=== PATIENT | male | born 1980 | race Two or more races ===

== ENCOUNTER 2017-07-19 04:27 | Emergency (ER) | payer MEDICAID ==
--- NOTE | 2017-07-19 05:36 | ED PDOC ---
HPI: Psych/Substance Abuse Time Seen by Provider: 07/19/17 04:49 Chief Complaint (Nursing): Psychiatric Evaluation Chief Complaint (Provider): Crisis Eval History Per: Patient History/Exam Limitations: no limitations Onset/Duration Of Symptoms: Days (5) Associated Symptoms: Suicidal Thoughts. denies: Suicidal Plan Additional History Per: Patient, EMS, Law Enforcement Additional Complaint(s): 37 y/o male who is here for psychiatric evaluation. He has a history of schizophrenia and complains that he hears voices and has had SI for the last 5 days. However, now he does not feel any way about himself and denies actively wanting to kill himself at this time. Denies plan. Patient also believes, and saw, that his family was killed in front of him today. Per the police, this did not occur. He reports that he is compliant with his medications. Past Medical History Reviewed: Historical Data, Nursing Documentation, Vital Signs Vital Signs: Last Vital Signs Temp 98.0 F 07/19/17 04:41 Pulse 101 H 07/19/17 04:41 Resp 18 07/19/17 04:41 BP 144/87 07/19/17 04:41 Pulse Ox 98 07/19/17 04:41 - Medical History PMH: Schizophrenia - Surgical History Surgical History: No Surg Hx - Family History Family History: States: Unknown Family Hx - Allergies Allergies/Adverse Reactions: Allergies Allergy/AdvReac Type Severity Reaction Status Date / Time No Known Allergies Allergy Verified 07/19/17 05:32 Review of Systems ROS Statement: Except As Marked, All Systems Reviewed And Found Negative Psych: Positive for: Suicidal ideation Physical Exam - Reviewed Nursing Documentation Reviewed: Yes Vital Signs Reviewed: Yes - Physical Exam Appears: Positive for: Well, No Acute Distress Head Exam: Positive for: ATRAUMATIC, NORMAL INSPECTION Skin: Positive for: Normal Color, Warm, Dry Eye Exam: Positive for: Normal appearance, EOMI Neck: Positive for: Painless ROM Cardiovascular/Chest: Positive for: Regular Rate, Rhythm Respiratory: Positive for: Normal Breath Sounds. Negative for: Respiratory Distress Gastrointestinal/Abdominal: Positive for: Soft. Negative for: Tenderness Back: Positive for: Normal Inspection Extremity: Positive for: Normal ROM Neurologic/Psych: Positive for: Alert, Oriented - Laboratory Results Result Diagrams: 07/19/17 08:30 07/19/17 08:30 - ECG O2 Sat by Pulse Oximetry: 98 Medical Decision Making Medical Decision Making: Impression: Schizophrenia and Suicidal Ideation Plan: - Crisis Evaluation 06:25: restrained for acute psychosis and agitation. Patient also given Haldol and Ativan. Scribe Attestation Documented by Marycarmen Story acting as a scribe for Leland Mccormick MD. Scribe Attestation All medical record entries made by the Scribe were at my direction and personally dictated by me. I have reviewed the chart and agree that the record accurately reflects my personal performance of the history, physical exam, medical decision making, and the department course for this patient. I have also personally directed, reviewed, and agree with the discharge instructions and disposition. Disposition - Clinical Impression Clinical Impression: Bipolar disorder - Patient ED Disposition Is Patient to be Admitted: Transfer of Care Counseled Patient/Family Regarding: Studies Performed, Diagnosis - Disposition Disposition: Transfer of Care Disposition Time: 07:00 Condition: STABLE Patient Signed Over To: Mandeep Saldivar
--- NOTE | 2017-07-19 07:41 | ED PDOC ---
- Laboratory Results Result Diagrams: 07/19/17 08:30 07/19/17 08:30 - ECG O2 Sat by Pulse Oximetry: 98 (RA) Pulse Ox Interpretation: Normal Medical Decision Making Medical Decision Making: Time: 07 Patient is transferred from Dr. Mccormick's care to myself pending crisis evaluation. Time: 1025 Chest X-Ray FINDINGS: LUNGS: Probable azygos lobe with thickening of the fissure. No active pulmonary disease. PLEURA: No significant pleural effusion identified, no pneumothorax apparent. CARDIOVASCULAR: Normal. OSSEOUS STRUCTURES: No significant abnormalities. VISUALIZED UPPER ABDOMEN: Normal. OTHER FINDINGS: None. IMPRESSION: No active disease. Medically stable for psychiatric eval Scribe Attestation: Documented by Brandi Fung, acting as a scribe for Mandeep Bond MD Provider Scribe Attestation: All medical record entries made by the Scribe were at my direction and personally dictated by me. I have reviewed the chart and agree that the record accurately reflects my personal performance of the history, physical exam, medical decision making, and the department course for this patient. I have also personally directed, reviewed, and agree with the discharge instructions and disposition Disposition - Clinical Impression Clinical Impression: Bipolar disorder - POA Present On Arrival: None - Disposition Disposition: Transfer of Care Disposition Time: 15:00 Condition: FAIR Forms: [employer] (Yoruba) Patient Signed Over To: Ester Johnson
[2017-07-19 08:46] LABS: BASO % 0.2 % (0.0-2.0); EOS # 0.2 K/uL (0.0-0.7); HEMOGLOBIN 13.6 g/dL (12.0-18.0); LYMPH # 3.7 K/uL (1.0-4.3); LYMPH % 24.2 % (20.0-40.0); MEAN CELL VOLUME 89.2 fl (80.0-94.0); MEAN CORPUSCULAR HEMOGLOBIN 29.9 pg (27.0-31.0); MEAN CORPUSCULAR HGB CONC 33.5 g/dL (33.0-37.0); MEAN PLATELET VOLUME 8.2 fl (7.2-11.7); MONO # 1.3 K/uL (0.0-0.8); MONO % 8.7 % (0.0-10.0); NEUT # 10.2 K/uL (1.8-7.0); NEUT % 65.9 % (50.0-75.0); RBC 4.54 Mil/uL (4.40-5.90); RED CELL DISTRIBUTION WIDTH 13.8 % (11.5-14.5); WHITE BLOOD COUNT 15.4 K/uL (4.8-10.8)
[2017-07-19 08:53] LABS: BLOOD UREA NITROGEN 7 mg/dl (9-20); GFR AFRICAN-AMERICAN > 60; GFR NON-AFRICAN AMERICAN > 60
[2017-07-19] MEDS ORDERED: Potassium Chloride 20 mEq ER Tab PO ONE ×2 (09:17→09:54)
--- NOTE | 2017-07-19 10:27 | RAD ---
HISTORY: cough COMPARISON: No prior. FINDINGS: LUNGS: Probable azygos lobe with thickening of the fissure. No active pulmonary disease. PLEURA: No significant pleural effusion identified, no pneumothorax apparent. CARDIOVASCULAR: Normal. OSSEOUS STRUCTURES: No significant abnormalities. VISUALIZED UPPER ABDOMEN: Normal. OTHER FINDINGS: None. IMPRESSION: No active disease.
[2017-07-19 14:14] LABS: SQUAMOUS EPITHIAL < 1 /hpf (0-5); URINE BILIRUBIN NEGATIVE (NEGATIVE); URINE BLOOD NEGATIVE (NEGATIVE); URINE CALCIUM OXALATE CRYSTALS RARE /hpf (<OCC); URINE CLARITY SLIGHTY-CLOUDY (Clear); URINE COLOR YELLOW (YELLOW); URINE GLUCOSE (UA) NEG (Normal); URINE HYALINE CAST 0-2 /hpf (0-2); URINE LEUKOCYTE ESTERASE NEG Leu/uL (Negative); URINE PROTEIN 30 mg/dL (NEGATIVE); URINE UROBILINOGEN 0.2-1.0 mg/dL (0.2-1.0)
[2017-07-19 14:35] LABS: BARBITURATES, UR NEGATIVE (NEGATIVE); BENZODIAZEPINES, UR NEGATIVE (NEGATIVE); OPIATES, UR NEGATIVE (NEGATIVE); PHENCYCLIDINE, UR NEGATIVE (NEGATIVE)
--- NOTE | 2017-07-19 15:08 | CARD ---
APPROVED REPORT EKG Measurement Heart [id number] <Conclusion> Normal sinus rhythm Normal ECG
--- NOTE | 2017-07-19 21:34 | ED PDOC ---
- Laboratory Results Result Diagrams: 07/19/17 08:30 07/19/17 08:30 - ECG O2 Sat by Pulse Oximetry: 97 (RA) Pulse Ox Interpretation: Normal Medical Decision Making Medical Decision Making: Time: 1500 Patient signed out to me by Dr. Saldivar. Pt pending [facility] evaluation for involuntary inpatient psych. Medically cleared. Had been given antipsychotics on arrival but stable now. Potassium supplementation given. 2200 Patient accepted by [facility] and currently pending bed availability. [address] Rider Pending bed availability at [facility] for transfer. Scribe Attestation: Documented by Kiara Nielsen acting as a scribe for Ester Johnson MD Provider Attestation: All medical record entries made by the Scribe were at my direction and personally dictated by me. I have reviewed the chart and agree that the record accurately reflects my personal performance of the history, physical exam, medical decision making, and the department course for this patient. I have also personally directed, reviewed, and agree with the discharge instructions and disposition. Disposition - Clinical Impression Clinical Impression: Bipolar disorder - POA Present On Arrival: None - Disposition Disposition: Transfer of Care Disposition Time: 00:00 Condition: STABLE Forms: [employer] (Slovak)
--- NOTE | 2017-07-20 00:55 | ED PDOC ---
- Laboratory Results Result Diagrams: 07/19/17 08:30 07/19/17 08:30 - ECG O2 Sat by Pulse Oximetry: 97 Medical Decision Making Medical Decision Making: Time: 00:00 --Patient endorsed to provider from Dr. Ester Johnson. P[place] bed availability at [facility] [place]. Time: 129 --Patient is resting comfortably with stable vitals. Time: 342 --Patient became agitated again. --Ativan and Haldol ordered. Time: 699 --Patient is endorsed to Dr. Mandeep Saldivar. Pending bed availability at [facility] [place]. Scribe Attestation: Documented by Peg Eng, acting as a scribe for Sadia Rider MD. Provider Scribe Attestation: All medical record entries made by the Scribe were at my direction and personally dictated by me. I have reviewed the chart and agree that the record accurately reflects my personal performance of the history, physical exam, medical decision making, and the department course for this patient. I have also personally directed, reviewed, and agree with the discharge instructions and disposition. Disposition - Clinical Impression Clinical Impression: Bipolar disorder - POA Present On Arrival: None - Disposition Disposition: Transfer of Care Disposition Time: 07:00 Condition: FAIR Forms: [employer] (Thai) Patient Signed Over To: Mandeep Saldivar Handoff Comments: pending [facility] [place] bed availibility
--- NOTE | 2017-07-20 07:12 | ED PDOC ---
- Laboratory Results Result Diagrams: 07/19/17 08:30 07/19/17 08:30 - ECG O2 Sat by Pulse Oximetry: 97 Medical Decision Making Medical Decision Makin:00 -Patient endorsed to me by Dr. Rider, [place] [facility] [place] Disposition - Clinical Impression Clinical Impression: Bipolar disorder - POA Present On Arrival: None - Disposition Disposition: Transfer of Care Disposition Time: 16:53 Condition: FAIR Forms: [employer] (Cymraes) Patient Signed Over To: Ester Johnson
--- NOTE | 2017-07-20 12:20 | CP.PCM.CON ---
History of Present Illness - History of Present Illness History of Present Illness: Psychiatry consult note CC: "I'm not feeling safe." HPI: 37 yo male w/ h/o schizophrenia, is a poor historian, oriented to self, location and 2018 (not date or president). He reports active suicidal ideation and auditory hallucinations which told him to harm his gf prior to presenting to the ER. Patient was medicated multiple times in the ER due to agitation and attempting to leave. He reports feeling depressed and anxious. He is not agreeable to voluntary hospitalization at [facility]. He was unable to give an accurate history, his past psychiatrist history or current medications. MSE: A + O x 2, poor eye contact, speech normal, mood/affect- depressed, +AH, thought process-disorganized, poor I/J Impression: 37 yo male w/ h/o schizophrenia presented acutely psychotic, agitated and suicidal. Patient was screened for involuntary psychiatric admission, accepted, pending bed and transfer. -Transfer to [facility] [place] when bed is available Past Patient History - Past Social History Smoking Status: Unknown If Ever Smoked - CARDIAC Hx Cardiac Disorders: No Hx Hypertension: No - PULMONARY Hx Tuberculosis: No - NEUROLOGICAL HX Cerebrovascular Accident: No Hx Seizures: No - HEMATOLOGICAL/ONCOLOGICAL Hx Cancer: No Hx Human Immunodeficiency Virus (HIV): No - GENITOURINARY/GYNECOLOGICAL Hx Sexually Transmitted Disorders: No - PSYCHIATRIC Hx Schizophrenia: Yes Meds Allergies/Adverse Reactions: Allergies Allergy/AdvReac Type Severity Reaction Status Date / Time No Known Allergies Allergy Verified 07/19/17 05:32 Results - Vital Signs Recent Vital Signs: Last Vital Signs Temp 97 F L 07/20/17 07:50 Pulse 87 07/20/17 07:50 Resp 19 07/20/17 07:50 BP 124/76 07/20/17 07:50 Pulse Ox 98 07/20/17 07:50 - Labs Result Diagrams: 07/19/17 08:30 07/19/17 08:30 Labs: Laboratory Results - last 24 hr 07/19/17 07/19/17 13:55 13:55 Urine Color Yellow Urine Clarity Slighty-cloudy Urine pH 6.0 Ur Specific [place] 1.013 Urine Protein 30 Urine Glucose (UA) Neg Urine Ketones Negative Urine Blood Negative Urine Nitrate Negative Urine Bilirubin Negative Urine Urobilinogen 0.2-1.0 Ur Leukocyte Esterase Neg Urine RBC (Auto) 4 H Urine Microscopic WBC 6 H Ur Squamous Epith Cells < 1 Calcium Oxalate Crystal Rare Hyaline Casts 0-2 Urine Opiates Screen Negative Urine Methadone Screen Negative Ur Barbiturates Screen Negative Ur Phencyclidine Scrn Negative Ur Amphetamines Screen Negative U Benzodiazepines Scrn Negative U Oth Cocaine Metabols Negative U Cannabinoids Screen Negative
--- NOTE | 2017-07-20 18:03 | ED PDOC ---
- Laboratory Results Result Diagrams: 07/19/17 08:30 07/19/17 08:30 - ECG O2 Sat by Pulse Oximetry: 97 - Progress ED Course And Treament: [address] Saldivar. Pt to be transferred to [facility] for involuntary inpatient psychiatric treatment, pending bed availability. 1800 Bed available for transfer. Stable for transfer. Disposition Counseled Patient/Family Regarding: Studies Performed, Diagnosis - Clinical Impression Clinical Impression: Bipolar disorder - POA Present On Arrival: None - Disposition Disposition: Other Institution Disposition Time: 18:00 Condition: FAIR Forms: [employer] (German)
[2017-07-20 20:13] VITALS: BP 139/72; PULSE 79; RESP 18; TEMP 98.2
[2017-07-21 11:41] VITALS: O2SAT 98
== END 2017-07-20 21:01 | disposition short-term general hospital (02) ==
LOC: H.ER 04:27
DX: F31.9 Bipolar disorder, unspecified (principal); Z86.59 Personal history of other mental and behavioral disorders; Z00.8 Encounter for other general examination
CPT/HCPCS: 71045; 80048; 80320; 80324; 80345; 80346; 80349; 80353; 80358; 80361; 81003; 83992; 85025; 93005; 96372; 99285; J1630; J2060